=== PATIENT | male | born 1950 | race Caucasian/White ===

== ENCOUNTER 2021-12-15 12:40 | Outpatient (CLI) | payer OTHER, SELFPAY ==
[2021-12-15 13:15] VITALS: BMI 26.2
--- NOTE | 2021-12-15 13:17 | ECG_ITS ---
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 Interpretive Statements Name of study: Exercise sestamibi stress test Indication: Chest pain Baseline blood pressure of 155/97 mm Hg, heart rate 91 beats per minute and oxygen saturation of 96%. EKG showed normal sinus rhythm, normal axis with normal ST-Ts. The patient exercised for 6 minutes on a standard Janusz protocol. Patient attained a maximum heart rate of 150 beats per minute(100% of the maximum predicted heart rate) with a blood pressure at the peak exercise of 217/115 mm Hg and oxygen saturation of 89%. Patient developed right bundle branch block in stage II of exercise. The EKG at the peak exercise revealed sinus tachycardia with right axis deviation and right bundle branch block. Patient did not have any chest pain or any significant arrhythmis with the exercise. The study was terminated due to maximal effort. During the recovery phase, there were no new changes. Right bundle branch block resolved 3 minutes into recovery. Patient also developed T wave inversion in lead I and aVL after resolution of right bundle branch block. Isolated frequent PVCs and PVC couplets noted in late recovery. Blood pressure at the end of the recovery phase was 166/99 mm Hg with a heart rate of 95 beats per minute and oxygen saturation 96%. CONCLUSION: 1. Normal EKG response to treadmill exercise. Patient developed right bundle branch block during exercise that resolved in recovery. 2. No exercise-induced chest pain. Frequent PVC's and PVC couplets noted in recovery. 3. Good exercise tolerance, attained a maximum of 7 METs. 4. Baseline hypertension with hypertensive response to exercise. 5. Perfusion scan will be documented separately. Electronically Signed On 12-20-2021 13:42:28 CDT by Nanda Church M.D. [id number]
[2021-12-15 13:46] VITALS: BP 166/99; PULSE 95
== END 2021-12-15 12:41 | disposition home or self-care (01) ==
PROVIDERS: PCP Family Medicine; Visit Provider Nurse Practitioner Family
DX: I10 Essential (primary) hypertension (principal); I25.10 Atherosclerotic heart disease of native coronary artery without angina pectoris; R07.89 Other chest pain; Z95.828 Presence of other vascular implants and grafts
CPT/HCPCS: 93017